=== PATIENT | male | born 1990 | race Caucasian/White ===

== ENCOUNTER 2023-06-03 12:45 | Emergency (ER) | payer MEDICAID ==
[~2023-06-03] VITALS: Ht 162.6 cm; Wt 68.0 kg
[2023-06-03 12:51] VITALS: O2SAT 98
[2023-06-03] MEDS ORDERED: ONDANSETRON HCL 4MG/2ML INJ IV STA (13:13)
[2023-06-03] MEDS ORDERED: SODIUM CHLORIDE 0.9% 1,000 ML IV ONE (13:15)
[2023-06-03] MEDS ORDERED: MECLIZINE 25MG TABLET PO ONE (13:15)
[2023-06-03 13:27] LABS: BASOPHILS % 0.9 % (0.0-2.0); EOSINOPHILS % 1.2 % (0.0-5.0); HEMATOCRIT. 42.3 % (42.0-52.0); HEMOGLOBIN. 14.3 g/dL (14.0-18.0); LYMPHOCYTES % 11.9 % (20.0-50.0); MEAN CORPUSCULAR HEMOGLOBIN 30.2 pg (28.0-32.0); MEAN CORPUSCULAR VOLUME 89.1 fL (80.0-94.0); MEAN PLATELET VOLUME 9.3 fl (7.4-10.4); MONOCYTES % 9.4 % (2.0-8.0); NEUTROPHILS % 76.6 % (40.0-76.0); PLATELET 246 x1000/uL (130-400); RED BLOOD CELL COUNT 4.74 mill/uL (4.7-6.1); RED CELL DISTRIBUTION WIDTH 12.7 % (11.6-14.6)
[2023-06-03 13:33] LABS: CHLORIDE 107 mEq/L (98-107)
[2023-06-03 13:41] LABS: ETHANOL BLOOD < 10 mg/dL (-10)
[2023-06-03] MEDS ORDERED: MECLIZINE 12.5MG TABLET PO NR (13:45)
[2023-06-03] MEDS ORDERED: MECL-159 MT (14:56)
[2023-06-03 15:23] VITALS: BP 128/61; PULSE 86; RESP 18; TEMP 98.3
== END 2023-06-03 15:26 | disposition home or self-care (01) ==
LOC: ER 13:05
DX: R42 Dizziness and giddiness (principal); R51.9 Headache, unspecified
CPT/HCPCS: 80053; 80320; 85025; 36415; 70450; 93005; 96361; 96374; 99285; J8597; J2405; J7030; Z7610 ×4; G0480

== ENCOUNTER 2023-06-15 14:00 | Emergency (ER) | payer MEDICAID ==
[~2023-06-15] VITALS: Ht 162.6 cm; Wt 73.0 kg
[~2023-06-15 14:00] MED LIST: MECL-159 MT
[2023-06-15 14:11] VITALS: O2SAT 97
[2023-06-15 14:41] VITALS: BP 126/74; PULSE 74; RESP 19; TEMP 98
== END 2023-06-15 18:41 | disposition home or self-care (01) ==
LOC: ER 14:39
DX: R42 Dizziness and giddiness (principal)
CPT/HCPCS: 99281

== ENCOUNTER 2023-11-23 08:56 | Emergency (ER) | payer SELFPAY ==
[~2023-11-23] VITALS: Ht 162.6 cm; Wt 73.0 kg
[~2023-11-23 08:56] MED LIST changes: -MECL-159 MT; +MECL-299 MT
[2023-11-23 09:02] VITALS: BP 151/85; PULSE 115; RESP 16; TEMP 98.3; O2SAT 98
[2023-11-23 09:44] LABS: BASOPHILS % 0.7 % (0.0-2.0); EOSINOPHILS % 0.1 % (0.0-5.0); HEMATOCRIT. 45.9 % (42.0-52.0); HEMOGLOBIN. 15.8 g/dL (14.0-18.0); LYMPHOCYTES % 9.6 % (20.0-50.0); MEAN CORPUSCULAR HEMOGLOBIN 30.8 pg (28.0-32.0); MEAN CORPUSCULAR HGB CONC 34.4 g/dL (31.0-37.0); MEAN CORPUSCULAR VOLUME 89.4 fL (80.0-94.0); MEAN PLATELET VOLUME 8.4 fl (7.4-10.4); MONOCYTES % 9.8 % (2.0-8.0); NEUTROPHILS % 79.8 % (40.0-76.0); PLATELET 372 x1000/uL (130-400); RED BLOOD CELL COUNT 5.14 mill/uL (4.7-6.1); RED CELL DISTRIBUTION WIDTH 13.2 % (11.6-14.6); WHITE BLOOD COUNT 8.1 x1000/uL (4.5-11.0)
[2023-11-23 10:29] LABS: CLARITY URINE CLOUDY (CLEAR); COLOR URINE DARK YELLOW (YELLOW); GLUCOSE URINE NEGATIVE (NEGATIVE); KETONES URINE 2+ (NEGATIVE); LEUKOCYTE ESTERASE URINE NEGATIVE (NEGATIVE); NITRITE URINE NEGATIVE (NEGATIVE); OCCULT BLOOD URINE NEGATIVE (NEGATIVE); PH URINE 6.5 (4.5-8.0); PROTEIN URINE 1+ (NEGATIVE); SPECIFIC GRAVITY URINE 1.025 (1.005-1.030)
[2023-11-23 10:48] LABS: SQUAMOUS EPITHELIAL CELL URINE NONE SEEN /lpf (RARE/1+); WBC URINE 0-2 /hpf (0-2)
[2023-11-23 10:49] LABS: BACTERIA URINE RARE; RBC URINE NONE SEEN /hpf (0-2)
[2023-11-23 11:03] LABS: ALANINE AMINOTRANSFERASE 23 IU/L (10-49); ALBUMIN 4.9 g/dL (3.2-4.8); ASPARTATE AMINOTRANSFERASE 41 IU/L (<34); BILIRUBIN TOTAL 0.8 mg/dL (0.1-1.0); CALCIUM 9.9 mg/dL (8.7-10.4); CARBON DIOXIDE 22 mEq/L (21-32); CHLORIDE 100 mEq/L (98-107); CREATININE 0.9 mg/dL (0.6-1.3); GLUCOSE 109 mg/dL (70-105); POTASSIUM 3.5 mEq/L (3.5-5.1); PROTEIN TOTAL 7.9 g/dL (6.0-8.3); SODIUM 135 mEq/L (136-145); UREA NITROGEN BLOOD 10 mg/dL (9-23)
[2023-11-23 11:07] LABS: ETHANOL BLOOD < 10 mg/dL (<10); TROPONIN I HIGH SENSITIVITY < 4 ng/L (3.0-53)
[2023-11-23 16:46] LABS: *AMPHETAMINES SCREEN URINE NEGATIVE (NEGATIVE); *BARBITURATES SCREEN URINE NEGATIVE (NEGATIVE); *BENZODIAZEPINES SCREEN URINE NEGATIVE (NEGATIVE); *COCAINE SCREEN URINE PRESUMPTIVE POSITIVE (NEGATIVE); CANNABINOID URINE SCREEN PRESUMPTIVE POSITIVE (NEGATIVE); ECSTASY MDMA SCREEN URINE NEGATIVE (NEGATIVE); METHADONE URINE SCREEN Neg (NEGATIVE); OPIATES URINE SCREEN NEGATIVE (NEGATIVE); PHENCYCLIDINE URINE SCREEN NEGATIVE (NEGATIVE)
== END 2023-11-23 11:54 | disposition left against medical advice (07) ==
LOC: ER 08:56
DX: K29.70 Gastritis, unspecified, without bleeding (principal); R07.9 Chest pain, unspecified; R10.9 Unspecified abdominal pain
CPT/HCPCS: 36415; 71045; 80053; 80305; 80320; 81003; 84484; 85025; 93005; 99285; G0480

== ENCOUNTER 2023-12-01 03:11 | Emergency (ER) | payer SELFPAY ==
[~2023-12-01] VITALS: Ht 162.6 cm; Wt 65.8 kg
[2023-12-01 03:41] VITALS: O2SAT 99
[2023-12-01 04:39] LABS: BASOPHILS % 1.1 % (0.0-2.0); EOSINOPHILS % 2.2 % (0.0-5.0); HEMATOCRIT. 43.5 % (42.0-52.0); HEMOGLOBIN. 14.5 g/dL (14.0-18.0); LYMPHOCYTES % 24.6 % (20.0-50.0); MEAN CORPUSCULAR HEMOGLOBIN 30.7 pg (28.0-32.0); MEAN CORPUSCULAR HGB CONC 33.3 g/dL (31.0-37.0); MEAN CORPUSCULAR VOLUME 92.3 fL (80.0-94.0); MONOCYTES % 9.4 % (2.0-8.0); NEUTROPHILS % 62.7 % (40.0-76.0); PLATELET 293 x1000/uL (130-400); RED BLOOD CELL COUNT 4.71 mill/uL (4.7-6.1); WHITE BLOOD COUNT 5.9 x1000/uL (4.5-11.0)
[2023-12-01 04:57] LABS: ALANINE AMINOTRANSFERASE 32 IU/L (10-49); ALBUMIN 4.7 g/dL (3.2-4.8); ASPARTATE AMINOTRANSFERASE 40 IU/L (<34); BILIRUBIN TOTAL 0.5 mg/dL (0.1-1.0); CALCIUM 9.6 mg/dL (8.7-10.4); CARBON DIOXIDE 30 mEq/L (21-32); CHLORIDE 104 mEq/L (98-107); CREATININE 0.8 mg/dL (0.6-1.3); GLUCOSE 91 mg/dL (70-105); POTASSIUM 4.2 mEq/L (3.5-5.1); PROTEIN TOTAL 8.1 g/dL (6.0-8.3); SODIUM 139 mEq/L (136-145); UREA NITROGEN BLOOD 13 mg/dL (9-23)
[2023-12-01 05:00] LABS: TROPONIN I HIGH SENSITIVITY < 4 ng/L (3.0-53)
[2023-12-01] MEDS ORDERED: IBUP-2029 MT (05:34)
[2023-12-01 06:17] VITALS: BP 142/95; PULSE 79; RESP 18; TEMP 98.1
== END 2023-12-01 06:20 | disposition home or self-care (01) ==
LOC: ER 03:11
DX: M94.0 Chondrocostal junction syndrome [Tietze] (principal)
CPT/HCPCS: 36415; 71045; 80053; 84484; 85025; 85379; 99284

== ENCOUNTER 2023-12-07 15:26 | Emergency (ER) | payer SELFPAY ==
[~2023-12-07] VITALS: Ht 162.6 cm; Wt 73.0 kg
[~2023-12-07 15:26] MED LIST changes: +IBUP-2029 MT
[2023-12-07 15:39] VITALS: O2SAT 99
[2023-12-07 17:08] VITALS: BP 127/70; PULSE 82; RESP 16; TEMP 97.9
== END 2023-12-07 17:11 | disposition home or self-care (01) ==
LOC: ER 15:26
DX: R07.9 Chest pain, unspecified (principal); K29.70 Gastritis, unspecified, without bleeding; R42 Dizziness and giddiness
CPT/HCPCS: 99281

== ENCOUNTER 2024-01-03 10:58 | Emergency (ER) | payer SELFPAY ==
[~2024-01-03] VITALS: Ht 162.6 cm; Wt 68.0 kg
[2024-01-03 11:07] VITALS: BP 112/74; PULSE 74; RESP 16; TEMP 98.5; O2SAT 97
[2024-01-03] MEDS ORDERED: MAGNESIUM/ALUMINUM HYDROXIDE/SIMETHICONE 30ML UDC PO ONE (11:30)
[2024-01-03 11:39] LABS: BASOPHILS % 0.7 % (0.0-2.0); EOSINOPHILS % 1.8 % (0.0-5.0); HEMATOCRIT. 43.3 % (42.0-52.0); HEMOGLOBIN. 15.1 g/dL (14.0-18.0); LYMPHOCYTES % 18.6 % (20.0-50.0); MEAN CORPUSCULAR HEMOGLOBIN 31.7 pg (28.0-32.0); MEAN CORPUSCULAR HGB CONC 34.7 g/dL (31.0-37.0); MEAN CORPUSCULAR VOLUME 91.2 fL (80.0-94.0); MEAN PLATELET VOLUME 8.6 fl (7.4-10.4); MONOCYTES % 8.9 % (2.0-8.0); PLATELET 317 x1000/uL (130-400); RED BLOOD CELL COUNT 4.75 mill/uL (4.7-6.1); RED CELL DISTRIBUTION WIDTH 13.4 % (11.6-14.6); WHITE BLOOD COUNT 6.3 x1000/uL (4.5-11.0)
[2024-01-03 11:59] LABS: ALANINE AMINOTRANSFERASE 80 IU/L (10-49); ASPARTATE AMINOTRANSFERASE 36 IU/L (<34); BILIRUBIN TOTAL 0.5 mg/dL (0.1-1.0); CALCIUM 9.5 mg/dL (8.7-10.4); CARBON DIOXIDE 29 mEq/L (21-32); CHLORIDE 102 mEq/L (98-107); CREATININE 0.8 mg/dL (0.6-1.3); ETHANOL BLOOD 36 mg/dL (<10); GLUCOSE 85 mg/dL (70-105); PROTEIN TOTAL 8.3 g/dL (6.0-8.3); SODIUM 139 mEq/L (136-145); UREA NITROGEN BLOOD 12 mg/dL (9-23)
[2024-01-03 12:01] LABS: TROPONIN I HIGH SENSITIVITY < 4 ng/L (3.0-53)
[2024-01-03] MEDS ORDERED: FAMO20TA8 MT (13:57)
[2024-01-03 14:03] LABS: TROPONIN I HIGH SENSITIVITY < 4 ng/L (3.0-53)
== END 2024-01-03 15:19 | disposition home or self-care (01) ==
LOC: ER 10:58
DX: R07.89 Other chest pain (principal); F10.10 Alcohol abuse, uncomplicated; F19.90 Other psychoactive substance use, unspecified, uncomplicated
CPT/HCPCS: 36415; 71045; 80053; 80320; 83880; 84484; 85025; 93005; 99285; G0480

== ENCOUNTER 2024-01-17 11:42 | Emergency (ER) | payer MEDICAID ==
[~2024-01-17] VITALS: Ht 162.6 cm; Wt 73.0 kg
[~2024-01-17 11:42] MED LIST changes: +FAMO20TA8 MT
[2024-01-17 11:46] VITALS: BP 119/59; PULSE 79; RESP 14; TEMP 97.9; O2SAT 98
== END 2024-01-17 15:40 | disposition left against medical advice (07) ==
LOC: ER 11:42
DX: M25.519 Pain in unspecified shoulder (principal)
CPT/HCPCS: 99281

== ENCOUNTER 2024-01-24 17:08 | Emergency (ER) | payer MEDICAID ==
[~2024-01-24] VITALS: Ht 162.6 cm; Wt 73.0 kg
[2024-01-24 17:19] VITALS: TEMP 98.3; O2SAT 96
[2024-01-24 17:56] LABS: CLARITY URINE CLEAR (CLEAR); COLOR URINE YELLOW (YELLOW); GLUCOSE URINE NEGATIVE (NEGATIVE); KETONES URINE NEGATIVE (NEGATIVE); LEUKOCYTE ESTERASE URINE NEGATIVE (NEGATIVE); NITRITE URINE NEGATIVE (NEGATIVE); OCCULT BLOOD URINE NEGATIVE (NEGATIVE); PROTEIN URINE NEGATIVE (NEGATIVE); SPECIFIC GRAVITY URINE 1.012 (1.005-1.030); UROBILINOGEN URINE 0.2 E.U./dL (0.2-1.0)
[2024-01-24 17:57] LABS: BASOPHILS % 1.1 % (0.0-2.0); EOSINOPHILS % 1.4 % (0.0-5.0); HEMATOCRIT. 41.5 % (42.0-52.0); HEMOGLOBIN. 14.1 g/dL (14.0-18.0); LYMPHOCYTES % 18.7 % (20.0-50.0); MEAN CORPUSCULAR HEMOGLOBIN 30.5 pg (28.0-32.0); MEAN CORPUSCULAR HGB CONC 33.9 g/dL (31.0-37.0); MEAN CORPUSCULAR VOLUME 90.1 fL (80.0-94.0); MEAN PLATELET VOLUME 8.7 fl (7.4-10.4); MONOCYTES % 7.7 % (2.0-8.0); NEUTROPHILS % 71.1 % (40.0-76.0); PLATELET 316 x1000/uL (130-400); RED BLOOD CELL COUNT 4.61 mill/uL (4.7-6.1); RED CELL DISTRIBUTION WIDTH 12.8 % (11.6-14.6); WHITE BLOOD COUNT 8.6 x1000/uL (4.5-11.0)
[2024-01-24 18:09] LABS: ALANINE AMINOTRANSFERASE 26 IU/L (10-49); ALBUMIN 4.9 g/dL (3.2-4.8); ASPARTATE AMINOTRANSFERASE 24 IU/L (<34); BILIRUBIN TOTAL 0.7 mg/dL (0.1-1.0); CALCIUM 9.7 mg/dL (8.7-10.4); CARBON DIOXIDE 29 mEq/L (21-32); CHLORIDE 101 mEq/L (98-107); CREATININE 0.8 mg/dL (0.6-1.3); GLUCOSE 86 mg/dL (70-105); PROTEIN TOTAL 7.9 g/dL (6.0-8.3); SODIUM 136 mEq/L (136-145); UREA NITROGEN BLOOD 10 mg/dL (9-23)
[2024-01-24 21:01] VITALS: BP 154/95; PULSE 91; RESP 16
[2024-01-24] MEDS: FAMOTIDINE 20MG TABLET PO ONE (21:01)
[2024-01-24] MEDS: KETOROLAC 30MG/ML VIAL IM ONE (21:01)
[2024-01-24] MEDS ORDERED: FAMO20TA8 MT (21:34)
== END 2024-01-24 22:28 | disposition home or self-care (01) ==
LOC: ER 17:24
DX: R10.13 Epigastric pain (principal); R11.0 Nausea; K57.90 Diverticulosis of intestine, part unspecified, without perforation or abscess without bleeding
CPT/HCPCS: 80053; 81003; 83690; 85025; 36415; 71045; 74176; 76705; 96372; 99285; J1885; Z7610

== ENCOUNTER 2024-02-18 13:50 | Emergency (ER) | payer MEDICAID ==
[~2024-02-18] VITALS: Ht 162.6 cm; Wt 73.0 kg
[2024-02-18 14:19] VITALS: BP 124/83; PULSE 99; RESP 18; TEMP 98.1; O2SAT 99
[2024-02-18] MEDS ORDERED: METH-653 MT (15:01)
[2024-02-18] MEDS ORDERED: IBUP-2029 MT (15:01)
== END 2024-02-18 15:11 | disposition home or self-care (01) ==
LOC: ER 13:50
DX: S13.4XXA Sprain of ligaments of cervical spine, initial encounter (principal); S43.402A Unspecified sprain of left shoulder joint, initial encounter; X58.XXXA Exposure to other specified factors, initial encounter; Y93.89 Activity, other specified; Y92.89 Other specified places as the place of occurrence of the external cause; Y99.8 Other external cause status
CPT/HCPCS: 99283

== ENCOUNTER 2024-02-18 21:56 | Emergency (ER) | payer MEDICAID ==
[~2024-02-18] VITALS: Ht 162.6 cm; Wt 73.0 kg
[~2024-02-18 21:56] MED LIST changes: +METH-653 MT
[2024-02-18 22:14] VITALS: BP 124/84; PULSE 80; RESP 18; TEMP 98.2; O2SAT 98
[2024-02-18 22:41] LABS: CLARITY URINE CLEAR (CLEAR); COLOR URINE YELLOW (YELLOW); GLUCOSE URINE NEGATIVE (NEGATIVE); KETONES URINE NEGATIVE (NEGATIVE); LEUKOCYTE ESTERASE URINE NEGATIVE (NEGATIVE); NITRITE URINE NEGATIVE (NEGATIVE); OCCULT BLOOD URINE NEGATIVE (NEGATIVE); PH URINE 6.5 (4.5-8.0); PROTEIN URINE NEGATIVE (NEGATIVE); SPECIFIC GRAVITY URINE 1.006 (1.005-1.030); UROBILINOGEN URINE 0.2 E.U./dL (0.2-1.0)
[2024-02-18 23:28] LABS: EOSINOPHILS % 3.7 % (0.0-5.0); HEMATOCRIT. 40.2 % (42.0-52.0); HEMOGLOBIN. 13.8 g/dL (14.0-18.0); LYMPHOCYTES % 25.4 % (20.0-50.0); MEAN CORPUSCULAR HEMOGLOBIN 31.6 pg (28.0-32.0); MEAN CORPUSCULAR HGB CONC 34.3 g/dL (31.0-37.0); MONOCYTES % 8.4 % (2.0-8.0); NEUTROPHILS % 61.5 % (40.0-76.0); PLATELET 267 x1000/uL (130-400); RED BLOOD CELL COUNT 4.37 mill/uL (4.7-6.1); RED CELL DISTRIBUTION WIDTH 12.3 % (11.6-14.6); WHITE BLOOD COUNT 7.9 x1000/uL (4.5-11.0)
[2024-02-18 23:38] LABS: ALANINE AMINOTRANSFERASE 50 IU/L (10-49); ALBUMIN 4.7 g/dL (3.2-4.8); ASPARTATE AMINOTRANSFERASE 34 IU/L (<34); BILIRUBIN TOTAL 0.6 mg/dL (0.1-1.0); CALCIUM 9.2 mg/dL (8.7-10.4); CARBON DIOXIDE 29 mEq/L (21-32); CHLORIDE 101 mEq/L (98-107); CREATININE 0.9 mg/dL (0.6-1.3); GLUCOSE 91 mg/dL (70-105); POTASSIUM 3.8 mEq/L (3.5-5.1); PROTEIN TOTAL 7.1 g/dL (6.0-8.3); SODIUM 136 mEq/L (136-145); UREA NITROGEN BLOOD 13 mg/dL (9-23)
[2024-02-19 00:05] LABS: TROPONIN I HIGH SENSITIVITY < 4 ng/L (3.0-53)
== END 2024-02-19 03:15 | disposition left against medical advice (07) ==
LOC: ER 22:04
DX: R07.89 Other chest pain (principal); Z53.21 Procedure and treatment not carried out due to patient leaving prior to being seen by health care provider
CPT/HCPCS: 36415; 71045; 80053; 81003; 84484; 85025; 93005; 99281

== ENCOUNTER 2024-02-22 11:14 | Emergency (ER) | payer MEDICAID ==
[~2024-02-22] VITALS: Ht 165.1 cm; Wt 73.0 kg
[2024-02-22 11:17] VITALS: O2SAT 99
[2024-02-22] MEDS: IBUPROFEN 600MG TABLET PO ONE (11:51)
[2024-02-22 12:05] LABS: BASOPHILS % 0.8 % (0.0-2.0); EOSINOPHILS % 1.3 % (0.0-5.0); HEMATOCRIT. 41.1 % (42.0-52.0); LYMPHOCYTES % 12.2 % (20.0-50.0); MEAN CORPUSCULAR HEMOGLOBIN 30.9 pg (28.0-32.0); MEAN CORPUSCULAR HGB CONC 34.1 g/dL (31.0-37.0); MEAN CORPUSCULAR VOLUME 90.6 fL (80.0-94.0); NEUTROPHILS % 78.7 % (40.0-76.0); PLATELET 266 x1000/uL (130-400); RED BLOOD CELL COUNT 4.54 mill/uL (4.7-6.1); RED CELL DISTRIBUTION WIDTH 12.4 % (11.6-14.6); WHITE BLOOD COUNT 6.6 x1000/uL (4.5-11.0)
[2024-02-22 12:24] LABS: ALANINE AMINOTRANSFERASE 33 IU/L (10-49); ALBUMIN 5.1 g/dL (3.2-4.8); ASPARTATE AMINOTRANSFERASE 24 IU/L (<34); BILIRUBIN TOTAL 0.6 mg/dL (0.1-1.0); CALCIUM 9.6 mg/dL (8.7-10.4); CARBON DIOXIDE 27 mEq/L (21-32); CHLORIDE 106 mEq/L (98-107); CREATININE 0.8 mg/dL (0.6-1.3); GLUCOSE 88 mg/dL (70-105); POTASSIUM 4.3 mEq/L (3.5-5.1); PROTEIN TOTAL 8.1 g/dL (6.0-8.3); SODIUM 139 mEq/L (136-145); UREA NITROGEN BLOOD 10 mg/dL (9-23)
[2024-02-22 12:26] LABS: TROPONIN I HIGH SENSITIVITY < 4 ng/L (3.0-53)
[2024-02-22 13:02] VITALS: BP 127/76; PULSE 72; RESP 18; TEMP 98.2
== END 2024-02-22 13:03 | disposition home or self-care (01) ==
LOC: ER 11:14
DX: R07.89 Other chest pain (principal); Z98.890 Other specified postprocedural states
CPT/HCPCS: 36415; 71045; 80053; 84484; 85025; 93005; 99285

== ENCOUNTER 2024-03-14 10:34 | Emergency (ER) | payer MEDICAID ==
[~2024-03-14] VITALS: Ht 162.6 cm; Wt 73.0 kg
[2024-03-14 10:39] VITALS: O2SAT 99
[2024-03-14] MEDS: ACETAMINOPHEN 325MG TABLET PO ONE (11:02)
[2024-03-14] MEDS ORDERED: ACET325T52 MT (13:14)
[2024-03-14 13:20] VITALS: BP 124/70; PULSE 87; RESP 16; TEMP 98.8
== END 2024-03-14 13:22 | disposition home or self-care (01) ==
LOC: ER 10:34
DX: S09.90XA Unspecified injury of head, initial encounter (principal); W01.0XXA Fall on same level from slipping, tripping and stumbling without subsequent striking against object, initial encounter; Y93.89 Activity, other specified; Y92.89 Other specified places as the place of occurrence of the external cause; Y99.8 Other external cause status
CPT/HCPCS: 99284

== ENCOUNTER 2024-03-28 17:10 | Emergency (ER) | payer MEDICAID ==
[~2024-03-28] VITALS: Ht 172.7 cm; Wt 68.0 kg
[~2024-03-28 17:10] MED LIST changes: +ACET325T52 MT
[2024-03-28 17:14] VITALS: O2SAT 98
[2024-03-28 17:30] VITALS: TEMP 98.6
[2024-03-28] MEDS: MAGNESIUM/ALUMINUM HYDROXIDE/SIMETHICONE 30ML UDC PO STA (17:37)
[2024-03-28 17:50] LABS: BASOPHILS % 0.5 % (0.0-2.0); EOSINOPHILS % 1.5 % (0.0-5.0); HEMATOCRIT. 37.3 % (42.0-52.0); HEMOGLOBIN. 12.9 g/dL (14.0-18.0); LYMPHOCYTES % 12.4 % (20.0-50.0); MEAN CORPUSCULAR HEMOGLOBIN 31.1 pg (28.0-32.0); MEAN CORPUSCULAR HGB CONC 34.7 g/dL (31.0-37.0); MEAN CORPUSCULAR VOLUME 89.6 fL (80.0-94.0); MEAN PLATELET VOLUME 7.7 fl (7.4-10.4); NEUTROPHILS % 78.6 % (40.0-76.0); PLATELET 321 x1000/uL (130-400); RED BLOOD CELL COUNT 4.16 mill/uL (4.7-6.1); RED CELL DISTRIBUTION WIDTH 12.4 % (11.6-14.6); WHITE BLOOD COUNT 7.3 x1000/uL (4.5-11.0)
[2024-03-28 17:58] LABS: CARBON DIOXIDE 27 mEq/L (21-32); CHLORIDE 100 mEq/L (98-107); POTASSIUM 3.8 mEq/L (3.5-5.1); SODIUM 135 mEq/L (136-145)
[2024-03-28 17:59] LABS: CALCIUM 9.3 mg/dL (8.7-10.4)
[2024-03-28 18:04] LABS: CREATININE 0.7 mg/dL (0.6-1.3); GLUCOSE 109 mg/dL (70-105); UREA NITROGEN BLOOD 8 mg/dL (9-23)
[2024-03-28 18:05] LABS: ALANINE AMINOTRANSFERASE 27 IU/L (10-49); ASPARTATE AMINOTRANSFERASE 35 IU/L (<34)
[2024-03-28 18:06] LABS: ALBUMIN 4.8 g/dL (3.2-4.8); BILIRUBIN TOTAL 0.8 mg/dL (0.1-1.0); PROTEIN TOTAL 8.1 g/dL (6.0-8.3)
[2024-03-28 19:03] VITALS: BP 148/92; PULSE 93; RESP 16
== END 2024-03-28 19:05 | disposition home or self-care (01) ==
LOC: ER 17:10
DX: R07.89 Other chest pain (principal)
CPT/HCPCS: 36415; 71045; 80053; 83880; 85025; 93005; 99285

== ENCOUNTER 2024-04-03 19:11 | Emergency (ER) | payer MEDICAID ==
[~2024-04-03] VITALS: Ht 162.6 cm; Wt 73.0 kg
[2024-04-03 19:17] VITALS: O2SAT 100
[2024-04-03 19:59] LABS: BASOPHILS % 0.8 % (0.0-2.0); HEMATOCRIT. 39.1 % (42.0-52.0); HEMOGLOBIN. 13.6 g/dL (14.0-18.0); MEAN CORPUSCULAR HGB CONC 34.7 g/dL (31.0-37.0); MEAN CORPUSCULAR VOLUME 89.4 fL (80.0-94.0); MEAN PLATELET VOLUME 7.2 fl (7.4-10.4); MONOCYTES % 4.1 % (2.0-8.0); NEUTROPHILS % 86.1 % (40.0-76.0); PLATELET 337 x1000/uL (130-400); RED BLOOD CELL COUNT 4.38 mill/uL (4.7-6.1); RED CELL DISTRIBUTION WIDTH 12.7 % (11.6-14.6)
[2024-04-03 20:04] LABS: CARBON DIOXIDE 27 mEq/L (21-32); CHLORIDE 97 mEq/L (98-107); POTASSIUM 4.2 mEq/L (3.5-5.1); SODIUM 135 mEq/L (136-145)
[2024-04-03 20:05] LABS: CALCIUM 9.8 mg/dL (8.7-10.4)
[2024-04-03 20:10] LABS: CREATININE 0.7 mg/dL (0.6-1.3); GLUCOSE 90 mg/dL (70-105); UREA NITROGEN BLOOD 12 mg/dL (9-23)
[2024-04-03 20:23] LABS: TROPONIN I HIGH SENSITIVITY < 4 ng/L (3.0-53)
[2024-04-03] MEDS ORDERED: [UNRECOGNIZED DRUG - OTHER] XX NR (23:30)
[2024-04-03] MEDS ORDERED: LIDOCAINE XX NR (23:30)
[2024-04-03] MEDS: SODIUM CHLORIDE 0.9% 1,000 ML IV NR (23:48)
[2024-04-04] MEDS: VISCOUS LIDOCAINE 2% 15 ML UDC PO NR
[2024-04-04] MEDS: MAGNESIUM/ALUMINUM HYDROXIDE/SIMETHICONE 30ML UDC PO NR
[2024-04-04 00:20] VITALS: TEMP 98
[2024-04-04 01:37] LABS: ALANINE AMINOTRANSFERASE 17 IU/L (10-49); ASPARTATE AMINOTRANSFERASE 33 IU/L (<34)
[2024-04-04 01:38] LABS: ALBUMIN 4.2 g/dL (3.2-4.8); BILIRUBIN DIRECT 0.3 mg/dL (<=3.0)
[2024-04-04 01:51] LABS: TROPONIN I HIGH SENSITIVITY < 4 ng/L (3.0-53)
[2024-04-04] MEDS ORDERED: MAG355OR21 MT (02:00)
[2024-04-04 02:23] VITALS: BP 115/71; PULSE 72; RESP 18
== END 2024-04-04 02:15 | disposition home or self-care (01) ==
LOC: ER 19:11
DX: R10.13 Epigastric pain (principal)
CPT/HCPCS: 36415; 71045; 80048; 80076; 84484; 85025; 93005; 96360; 99285

== ENCOUNTER 2024-05-03 17:37 | Emergency (ER) | payer MEDICAID ==
[~2024-05-03] VITALS: Ht 162.6 cm; Wt 68.0 kg
[~2024-05-03 17:37] MED LIST changes: +MAG355OR21 MT
[2024-05-03 18:12] VITALS: TEMP 98.5; O2SAT 98
[2024-05-03 22:59] LABS: TROPONIN I HIGH SENSITIVITY < 4 ng/L (3.0-53)
[2024-05-03 23:10] VITALS: BP 128/76; PULSE 68; RESP 16
== END 2024-05-03 23:24 | disposition home or self-care (01) ==
LOC: ER 17:37
DX: R07.2 Precordial pain (principal)
CPT/HCPCS: 36415; 71045; 84484; 93005; 99285

== ENCOUNTER 2024-05-22 14:49 | Emergency (ER) | payer MEDICAID ==
[~2024-05-22] VITALS: Ht 167.6 cm; Wt 82.0 kg
[2024-05-22 14:51] VITALS: O2SAT 100
[2024-05-22 15:49] LABS: BASOPHILS % 0.5 % (0.0-2.0); EOSINOPHILS % 0.1 % (0.0-5.0); HEMATOCRIT. 46.1 % (42.0-52.0); HEMOGLOBIN. 15.4 g/dL (14.0-18.0); LYMPHOCYTES % 11.1 % (20.0-50.0); MEAN CORPUSCULAR HEMOGLOBIN 30.7 pg (28.0-32.0); MEAN CORPUSCULAR HGB CONC 33.4 g/dL (31.0-37.0); MEAN CORPUSCULAR VOLUME 91.9 fL (80.0-94.0); MEAN PLATELET VOLUME 8.2 fl (7.4-10.4); NEUTROPHILS % 78.3 % (40.0-76.0); PLATELET 390 x1000/uL (130-400); RED BLOOD CELL COUNT 5.02 mill/uL (4.7-6.1); RED CELL DISTRIBUTION WIDTH 14.5 % (11.6-14.6); WHITE BLOOD COUNT 9.7 x1000/uL (4.5-11.0)
[2024-05-22 16:06] LABS: CHLORIDE 97 mEq/L (98-107); POTASSIUM 3.5 mEq/L (3.5-5.1); SODIUM 136 mEq/L (136-145)
[2024-05-22 16:07] LABS: CARBON DIOXIDE 23 mEq/L (21-32)
[2024-05-22 16:12] LABS: CREATININE 0.9 mg/dL (0.6-1.3); GLUCOSE 120 mg/dL (70-105); UREA NITROGEN BLOOD 9 mg/dL (9-23)
[2024-05-22 16:13] LABS: TROPONIN I HIGH SENSITIVITY 10 ng/L (3.0-53)
[2024-05-22 18:29] VITALS: TEMP 98.4
[2024-05-22] MEDS: ACETAMINOPHEN 325MG TABLET PO ONE (18:29)
[2024-05-22] MEDS: ONDANSETRON 4MG ODT PO ONE (18:29)
[2024-05-22 21:01] LABS: TROPONIN I HIGH SENSITIVITY 7 ng/L (3.0-53)
[2024-05-22 22:33] VITALS: BP 125/80; PULSE 87; RESP 16
== END 2024-05-22 22:34 | disposition home or self-care (01) ==
LOC: ER 14:49
DX: R07.89 Other chest pain (principal); R10.9 Unspecified abdominal pain; Z79.899 Other long term (current) drug therapy
CPT/HCPCS: 99285; 93880; 74176; 71045; 80048; 85025; 84484; 36415; 76604; 93005; Q0162

== ENCOUNTER 2024-05-28 10:00 | Emergency (ER) | payer MEDICAID ==
[~2024-05-28] VITALS: Ht 172.7 cm; Wt 60.0 kg
[2024-05-28 10:12] VITALS: O2SAT 100
[2024-05-28 10:35] LABS: CLARITY URINE CLEAR (CLEAR); COLOR URINE YELLOW (YELLOW); GLUCOSE URINE NEGATIVE (NEGATIVE); KETONES URINE NEGATIVE (NEGATIVE); LEUKOCYTE ESTERASE URINE NEGATIVE (NEGATIVE); NITRITE URINE NEGATIVE (NEGATIVE); OCCULT BLOOD URINE NEGATIVE (NEGATIVE); PH URINE 6.5 (4.5-8.0); PROTEIN URINE NEGATIVE (NEGATIVE); UROBILINOGEN URINE 0.2 E.U./dL (0.2-1.0)
[2024-05-28 10:44] LABS: BASOPHILS % 2.5 % (0.0-2.0); EOSINOPHILS % 4.6 % (0.0-5.0); HEMATOCRIT. 42.9 % (42.0-52.0); HEMOGLOBIN. 14.7 g/dL (14.0-18.0); LYMPHOCYTES % 19.8 % (20.0-50.0); MEAN CORPUSCULAR HEMOGLOBIN 31.5 pg (28.0-32.0); MEAN CORPUSCULAR HGB CONC 34.3 g/dL (31.0-37.0); MEAN PLATELET VOLUME 8.5 fl (7.4-10.4); MONOCYTES % 9.2 % (2.0-8.0); NEUTROPHILS % 63.9 % (40.0-76.0); PLATELET 333 x1000/uL (130-400); RED BLOOD CELL COUNT 4.67 mill/uL (4.7-6.1); RED CELL DISTRIBUTION WIDTH 14.3 % (11.6-14.6); WHITE BLOOD COUNT 6.1 x1000/uL (4.5-11.0)
[2024-05-28 10:52] LABS: CARBON DIOXIDE 30 mEq/L (21-32); CHLORIDE 102 mEq/L (98-107); POTASSIUM 4.1 mEq/L (3.5-5.1); SODIUM 137 mEq/L (136-145)
[2024-05-28 10:53] LABS: CALCIUM 9.6 mg/dL (8.7-10.4)
[2024-05-28 10:54] LABS: INR 0.9; PROTHROMBIN TIME 10.3 sec (9.6-11.0)
[2024-05-28 10:58] LABS: CREATININE 0.9 mg/dL (0.6-1.3); GLUCOSE 94 mg/dL (70-105); UREA NITROGEN BLOOD 12 mg/dL (9-23)
[2024-05-28 10:59] LABS: ALBUMIN 4.6 g/dL (3.2-4.8)
[2024-05-28 11:00] LABS: ALANINE AMINOTRANSFERASE 37 IU/L (10-49); ASPARTATE AMINOTRANSFERASE 35 IU/L (<34); BILIRUBIN DIRECT 0.1 mg/dL (<=3.0); BILIRUBIN TOTAL 0.4 mg/dL (0.1-1.0); PROTEIN TOTAL 7.5 g/dL (6.0-8.3)
[2024-05-28 11:01] LABS: TROPONIN I HIGH SENSITIVITY < 4 ng/L (3.0-53)
[2024-05-28] MEDS: ACETAMINOPHEN 325MG TABLET PO NR (13:11)
[2024-05-28 13:45] VITALS: BP 127/71; PULSE 70; RESP 20; TEMP 98.2
== END 2024-05-28 13:46 | disposition home or self-care (01) ==
LOC: ER 10:00
DX: R10.84 Generalized abdominal pain (principal)
CPT/HCPCS: 36415; 71045; 74176; 80048; 80076; 81003; 84484; 85025; 93005; 99285

== ENCOUNTER → 2024-08-24 | Emergency (ER) | payer MEDICAID ==
[~2024-08-24] VITALS: Ht 162.6 cm; Wt 68.0 kg
[~2024-08-24] MED LIST changes: +CELE100C MT; +CYCL10TA21 MT
[2024-08-24 15:16] VITALS: BP 126/72; PULSE 88; RESP 16; TEMP 98; O2SAT 98
[2024-08-24 15:47] VITALS: TEMP 36.66960; O2SAT 98
== END ==
LOC: ER 15:09
DX: M54.9 Dorsalgia, unspecified (principal); Z79.899 Other long term (current) drug therapy
CPT/HCPCS: 99283

== ENCOUNTER 2024-08-29 15:43 | Emergency (ER) | payer MEDICAID ==
[~2024-08-29] VITALS: Ht 172.7 cm; Wt 74.0 kg
[2024-08-29 15:50] VITALS: O2SAT 99
[2024-08-29] MEDS: ACETAMINOPHEN 500MG TABLET PO ONE (17:45)
[2024-08-29] MEDS ORDERED: LIDO700A30 TP (17:48)
[2024-08-29] MEDS ORDERED: ACET-2708 MT (17:48)
[2024-08-29 18:30] VITALS: BP 128/71; PULSE 78; RESP 12; TEMP 36.83628; O2SAT 100
== END 2024-08-29 18:43 | disposition home or self-care (01) ==
LOC: ER 15:43
DX: S29.012A Strain of muscle and tendon of back wall of thorax, initial encounter (principal); X58.XXXA Exposure to other specified factors, initial encounter; Y93.89 Activity, other specified; Y92.89 Other specified places as the place of occurrence of the external cause; Y99.8 Other external cause status
CPT/HCPCS: 73030; 99283

== ENCOUNTER 2024-09-04 03:28 | Emergency (ER) | payer MEDICAID ==
[~2024-09-04] VITALS: Ht 162.6 cm; Wt 65.0 kg
[~2024-09-04 03:28] MED LIST changes: +ACET-2708 MT; +LIDO700A30 TP
[2024-09-04 03:35] VITALS: O2SAT 100
[2024-09-04 04:27] LABS: BASOPHILS % 0.8 % (0.0-2.0); EOSINOPHILS % 2.9 % (0.0-5.0); HEMATOCRIT. 42.5 % (42.0-52.0); HEMOGLOBIN. 14.7 g/dL (14.0-18.0); LYMPHOCYTES % 24.4 % (20.0-50.0); MEAN CORPUSCULAR HEMOGLOBIN 30.8 pg (28.0-32.0); MEAN CORPUSCULAR HGB CONC 34.5 g/dL (31.0-37.0); MEAN CORPUSCULAR VOLUME 89.2 fL (80.0-94.0); MEAN PLATELET VOLUME 7.5 fl (7.4-10.4); MONOCYTES % 9.5 % (2.0-8.0); NEUTROPHILS % 62.4 % (40.0-76.0); PLATELET 364 x1000/uL (130-400); RED BLOOD CELL COUNT 4.76 mill/uL (4.7-6.1); RED CELL DISTRIBUTION WIDTH 13.4 % (11.6-14.6); WHITE BLOOD COUNT 7.2 x1000/uL (4.5-11.0)
[2024-09-04 04:36] LABS: CHLORIDE 100 mEq/L (98-107); POTASSIUM 3.6 mEq/L (3.5-5.1); SODIUM 136 mEq/L (136-145)
[2024-09-04 04:37] LABS: CARBON DIOXIDE 27 mEq/L (21-32)
[2024-09-04 04:38] LABS: CALCIUM 9.4 mg/dL (8.7-10.4)
[2024-09-04 04:42] LABS: CREATININE 0.7 mg/dL (0.6-1.3); GLUCOSE 99 mg/dL (70-105); UREA NITROGEN BLOOD 10 mg/dL (9-23)
[2024-09-04 04:54] LABS: TROPONIN I HIGH SENSITIVITY < 4 ng/L (3.0-53)
[2024-09-04 05:05] LABS: CLARITY URINE CLEAR (CLEAR); COLOR URINE ORANGE (YELLOW); GLUCOSE URINE NEGATIVE (NEGATIVE); KETONES URINE NEGATIVE (NEGATIVE); LEUKOCYTE ESTERASE URINE NEGATIVE (NEGATIVE); NITRITE URINE NEGATIVE (NEGATIVE); OCCULT BLOOD URINE NEGATIVE (NEGATIVE); PROTEIN URINE TRACE (NEGATIVE); SPECIFIC GRAVITY URINE 1.021 (1.005-1.030); UROBILINOGEN URINE 0.2 E.U./dL (0.2-1.0)
[2024-09-04] MEDS ORDERED: NAPR-1176 MT (05:34)
[2024-09-04] MEDS ORDERED: LIDO700A15 TP (05:34)
[2024-09-04 05:57] VITALS: BP 139/83; PULSE 78; RESP 18; TEMP 37.00296; O2SAT 100
[2024-09-04] MEDS: KETOROLAC 15MG/ML VIAL IM ONE (05:57)
[2024-09-04 07:17] LABS: BACTERIA URINE NONE SEEN; RBC URINE 0-2 /hpf (0-2); SQUAMOUS EPITHELIAL CELL URINE FEW /lpf (RARE/1+); WBC URINE 0-2 /hpf (0-2)
== END 2024-09-04 05:59 | disposition home or self-care (01) ==
LOC: ER 03:28
DX: R07.89 Other chest pain (principal); Z79.899 Other long term (current) drug therapy
CPT/HCPCS: 99285; 71045; 80048; 81003; 85025; 84484; 36415; 93005; 96372; J1885

== ENCOUNTER 2024-11-24 20:54 | Emergency (ER) | payer MEDICAID ==
[~2024-11-24] VITALS: Ht 162.6 cm; Wt 70.3 kg
[~2024-11-24 20:54] MED LIST changes: +ACET-3800 MT; -ACET325T52 MT; +LIDO700A15 TP; +NAPR-1176 MT
[2024-11-24 21:06] VITALS: O2SAT 98
[2024-11-24 22:16] LABS: BASOPHILS % 1.3 % (0.0-2.0); EOSINOPHILS % 5.3 % (0.0-5.0); HEMATOCRIT. 43.8 % (42.0-52.0); HEMOGLOBIN. 14.8 g/dL (14.0-18.0); LYMPHOCYTES % 24.9 % (20.0-50.0); MEAN CORPUSCULAR HGB CONC 33.8 g/dL (31.0-37.0); MEAN CORPUSCULAR VOLUME 91.6 fL (80.0-94.0); MEAN PLATELET VOLUME 8.9 fl (7.4-10.4); MONOCYTES % 9.6 % (2.0-8.0); NEUTROPHILS % 58.9 % (40.0-76.0); PLATELET 308 x1000/uL (130-400); RED BLOOD CELL COUNT 4.78 mill/uL (4.7-6.1); RED CELL DISTRIBUTION WIDTH 13.4 % (11.6-14.6); WHITE BLOOD COUNT 7.1 x1000/uL (4.5-11.0)
[2024-11-24 22:19] LABS: CHLORIDE 104 mEq/L (98-107); POTASSIUM 3.9 mEq/L (3.5-5.1); SODIUM 139 mEq/L (136-145)
[2024-11-24 22:20] LABS: CALCIUM 9.9 mg/dL (8.7-10.4); CARBON DIOXIDE 29 mEq/L (21-32)
[2024-11-24 22:22] LABS: INR 0.9; PROTHROMBIN TIME 9.8 sec (9.6-11.0)
[2024-11-24 22:25] LABS: CREATININE 0.9 mg/dL (0.6-1.3); GLUCOSE 114 mg/dL (70-105); UREA NITROGEN BLOOD 15 mg/dL (9-23)
[2024-11-24 22:31] LABS: TROPONIN I HIGH SENSITIVITY < 4 ng/L (3.0-53)
[2024-11-25] MEDS ORDERED: FAMO-135 MT (01:16)
[2024-11-25 02:31] VITALS: BP 129/78; PULSE 80; RESP 17; TEMP 37.05852; O2SAT 98
== END 2024-11-25 02:32 | disposition home or self-care (01) ==
LOC: ER 20:54
DX: K29.70 Gastritis, unspecified, without bleeding (principal); Z79.1 Long term (current) use of non-steroidal anti-inflammatories (NSAID)
CPT/HCPCS: 36415; 71045; 80048; 84484; 85025; 93005; 99285

== ENCOUNTER 2025-01-03 07:41 | Inpatient (IN) | payer OTHER, MEDICAID ==
[~2025-01-03] VITALS: Ht 162.6 cm; Wt 70.3 kg
[~2025-01-03 07:41] MED LIST changes: +FAMO-135 MT
[2025-01-03 07:46] VITALS: O2SAT 100
[2025-01-03 08:26] LABS: BASOPHILS % 0.8 % (0.0-2.0); EOSINOPHILS % 0.5 % (0.0-5.0); HEMATOCRIT. 45.3 % (42.0-52.0); HEMOGLOBIN. 15.8 g/dL (14.0-18.0); LYMPHOCYTES % 21.6 % (20.0-50.0); MEAN CORPUSCULAR HEMOGLOBIN 31.4 pg (28.0-32.0); MEAN CORPUSCULAR HGB CONC 34.8 g/dL (31.0-37.0); MEAN PLATELET VOLUME 7.6 fl (7.4-10.4); MONOCYTES % 7.5 % (2.0-8.0); NEUTROPHILS % 69.6 % (40.0-76.0); PLATELET 364 x1000/uL (130-400); RED BLOOD CELL COUNT 5.04 mill/uL (4.7-6.1); RED CELL DISTRIBUTION WIDTH 13.3 % (11.6-14.6); WHITE BLOOD COUNT 8.2 x1000/uL (4.5-11.0)
[2025-01-03 08:37] LABS: CHLORIDE 99 mEq/L (98-107); POTASSIUM 3.6 mEq/L (3.5-5.1); SODIUM 135 mEq/L (136-145)
[2025-01-03 08:38] LABS: CARBON DIOXIDE 23 mEq/L (21-32)
[2025-01-03 08:39] LABS: CALCIUM 9.8 mg/dL (8.7-10.4)
[2025-01-03 08:43] LABS: CREATININE 0.9 mg/dL (0.6-1.3); GLUCOSE 107 mg/dL (70-105); UREA NITROGEN BLOOD 10 mg/dL (9-23)
[2025-01-03 08:45] LABS: TROPONIN I HIGH SENSITIVITY < 4 ng/L (3.0-53)
[2025-01-03] MEDS: PANTOPRAZOLE SODIUM 40 MG/VIAL IV NR (08:49)
[2025-01-03] MEDS: SODIUM CHLORIDE 0.9% 1,000 ML IV ONE (08:49)
[2025-01-03 09:14] LABS: ETHANOL BLOOD 87 mg/dL (<10)
[2025-01-03 09:15] LABS: ALANINE AMINOTRANSFERASE 24 IU/L (10-49); ALBUMIN 4.5 g/dL (3.2-4.8); ASPARTATE AMINOTRANSFERASE 39 IU/L (<34); BILIRUBIN DIRECT 0.2 mg/dL (<=3.0); BILIRUBIN TOTAL 0.6 mg/dL (0.1-1.0); PROTEIN TOTAL 8.1 g/dL (6.0-8.3)
[2025-01-03 09:19] LABS: LACTIC ACID 4.7 mmol/L (0.4-2.0)
[2025-01-03] MEDS: [UNRECOGNIZED DRUG - REMARK] IV ONE (10:15)
[2025-01-03] MEDS: LORAZEPAM 2MG/ML INJ IV ONE (10:21)
[2025-01-03 10:23] LABS: CLARITY URINE CLEAR (CLEAR); COLOR URINE YELLOW (YELLOW); GLUCOSE URINE NEGATIVE (NEGATIVE); KETONES URINE 2+ (NEGATIVE); LEUKOCYTE ESTERASE URINE NEGATIVE (NEGATIVE); NITRITE URINE NEGATIVE (NEGATIVE); OCCULT BLOOD URINE NEGATIVE (NEGATIVE); PROTEIN URINE TRACE (NEGATIVE); SPECIFIC GRAVITY URINE 1.023 (1.005-1.030); UROBILINOGEN URINE 0.2 E.U./dL (0.2-1.0)
[2025-01-03 10:40] LABS: *AMPHETAMINES SCREEN URINE PRESUMPTIVE POSITIVE (NEGATIVE); *BARBITURATES SCREEN URINE NEGATIVE (NEGATIVE); *BENZODIAZEPINES SCREEN URINE NEGATIVE (NEGATIVE); *COCAINE SCREEN URINE NEGATIVE (NEGATIVE); METHADONE URINE SCREEN NEGATIVE (NEGATIVE); OPIATES URINE SCREEN NEGATIVE (NEGATIVE)
[2025-01-03 10:41] LABS: CANNABINOID URINE SCREEN NEGATIVE (NEGATIVE); ECSTASY MDMA SCREEN URINE CONF.TEST INDICATED (NEGATIVE); PHENCYCLIDINE URINE SCREEN NEGATIVE (NEGATIVE)
[2025-01-03 10:46] LABS: RBC URINE 0-2 /hpf (0-2); SQUAMOUS EPITHELIAL CELL URINE NONE SEEN /lpf (RARE/1+); WBC URINE 0-2 /hpf (0-2)
[2025-01-03 10:47] LABS: BACTERIA URINE NONE SEEN; YEAST URINE NONE SEEN
[2025-01-03] MEDS ORDERED: LORAZEPAM 0.5MG TABLET PO PRN (11:45)
[2025-01-03] MEDS ORDERED: ACETAMINOPHEN 325MG TABLET PO PRN ×2 (11:45)
[2025-01-03] MEDS ORDERED: ONDANSETRON HCL 4MG/2ML INJ IV PRN (11:45)
[2025-01-03] MEDS ORDERED: CLONIDINE 0.1MG TABLET PO PRN (11:45)
[2025-01-03] MEDS ORDERED: GUAIFENESIN 200MG/10ML SUGAR FREE UDC PO PRN (11:45)
[2025-01-03] MEDS ORDERED: IPRATROPIUM/ALBUTEROL 0.5-3(2.5)MG/3ML NEB HHN PRN (11:45)
[2025-01-03] MEDS ORDERED: DOCUSATE SODIUM 100MG CAPSULE PO PRN (11:45)
[2025-01-03 12:00] VITALS: BP 128/65; PULSE 98; RESP 18; TEMP 36.7; O2SAT 99
[2025-01-03 12:46] VITALS: BP 121/63; PULSE 98; RESP 15; TEMP 36.1
[2025-01-03] MEDS: SODIUM CHLORIDE 0.9% 1,000 ML IV SCH (13:30)
[2025-01-03 16:00] VITALS: BP 130/87; PULSE 107; RESP 18; TEMP 37.1; O2SAT 100
[2025-01-03 18:17] LABS: HEMATOCRIT 40.1 % (42.0-52.0); HEMOGLOBIN 13.5 g/dL (14.0-18.0); MEAN CORPUSCULAR HEMOGLOBIN 30.8 pg (28.0-32.0); MEAN CORPUSCULAR HGB CONC 33.8 g/dL (31.0-37.0); PLATELET 287 x1000/uL (130-400); RED CELL DISTRIBUTION WIDTH 13.8 % (11.6-14.6); WHITE BLOOD COUNT 8.4 x1000/uL (4.5-11.0)
[2025-01-03 20:00] VITALS: BP 135/75; RESP 18; TEMP 36.3; O2SAT 98
[2025-01-04] VITALS: BP 127/87; PULSE 82; RESP 20; TEMP 36.5; O2SAT 82
[2025-01-04] MEDS: MAGNESIUM/ALUMINUM HYDROXIDE/SIMETHICONE 30ML UDC PO PRN (03:03)
[2025-01-04 04:00] VITALS: BP 136/75; PULSE 54; RESP 20; TEMP 36.1; O2SAT 99
[2025-01-04] MEDS: PANTOPRAZOLE 40MG DR TABLET PO SCH (08:14)
[2025-01-04 10:21] LABS: CHLORIDE 105 mEq/L (98-107); POTASSIUM 3.7 mEq/L (3.5-5.1); SODIUM 137 mEq/L (136-145)
[2025-01-04 10:22] LABS: CALCIUM 9.3 mg/dL (8.7-10.4); CARBON DIOXIDE 22 mEq/L (21-32)
[2025-01-04 10:27] LABS: CREATININE 0.6 mg/dL (0.6-1.3); GLUCOSE 89 mg/dL (70-105); UREA NITROGEN BLOOD 8 mg/dL (9-23)
[2025-01-04] MEDS ORDERED: LORAZEPAM 2MG/ML INJ IV PRN (10:45)
== END 2025-01-04 12:53 | disposition left against medical advice (07) | DRG 313 ==
LOC: ER 07:52 → 5WST 10:54 → EDBEDREQ 10:58 → EDBEDREQTM 10:58
PROVIDERS: ADMIT Internal Medicine; ATTEND Internal Medicine
DX: R07.89 Other chest pain (principal); E87.20 Acidosis, unspecified; F14.90 Cocaine use, unspecified, uncomplicated; F17.210 Nicotine dependence, cigarettes, uncomplicated; F41.9 Anxiety disorder, unspecified; I25.10 Atherosclerotic heart disease of native coronary artery without angina pectoris; Z53.29 Procedure and treatment not carried out because of patient's decision for other reasons; K21.9 Gastro-esophageal reflux disease without esophagitis; F19.10 Other psychoactive substance abuse, uncomplicated
CPT/HCPCS: 36415; 71045; 80048; 80076; 80305; 80320; 81003; 83605; 84484; 85025; 85027; 85379; 93005; J2060; J2470; J3411; J3490; J7070; G0480

== ENCOUNTER 2025-01-14 08:56 | Emergency (ER) | payer OTHER, MEDICAID ==
[~2025-01-14] VITALS: Ht 162.6 cm; Wt 70.3 kg
[2025-01-14 09:08] VITALS: O2SAT 99
[2025-01-14] MEDS: ONDANSETRON 4MG ODT PO STA (10:08)
[2025-01-14] MEDS: MAGNESIUM/ALUMINUM HYDROXIDE/SIMETHICONE 30ML UDC PO STA (10:08)
[2025-01-14 10:09] LABS: CHLORIDE 100 mEq/L (98-107); POTASSIUM 4.2 mEq/L (3.5-5.1); SODIUM 138 mEq/L (136-145)
[2025-01-14 10:10] LABS: BASOPHILS % 0.8 % (0.0-2.0); CARBON DIOXIDE 27 mEq/L (21-32); EOSINOPHILS % 0.9 % (0.0-5.0); HEMATOCRIT. 47.1 % (42.0-52.0); HEMOGLOBIN. 15.7 g/dL (14.0-18.0); LYMPHOCYTES % 14.3 % (20.0-50.0); MEAN CORPUSCULAR HGB CONC 33.3 g/dL (31.0-37.0); MEAN CORPUSCULAR VOLUME 90.1 fL (80.0-94.0); MEAN PLATELET VOLUME 8.4 fl (7.4-10.4); MONOCYTES % 13.1 % (2.0-8.0); NEUTROPHILS % 70.9 % (40.0-76.0); PLATELET 353 x1000/uL (130-400); RED BLOOD CELL COUNT 5.22 mill/uL (4.7-6.1); RED CELL DISTRIBUTION WIDTH 13.8 % (11.6-14.6); WHITE BLOOD COUNT 9.5 x1000/uL (4.5-11.0)
[2025-01-14 10:11] LABS: CALCIUM 10.9 mg/dL (8.7-10.4)
[2025-01-14 10:15] LABS: CREATININE 0.9 mg/dL (0.6-1.3)
[2025-01-14 10:16] LABS: GLUCOSE 108 mg/dL (70-105); UREA NITROGEN BLOOD 13 mg/dL (9-23)
[2025-01-14 10:17] LABS: ALANINE AMINOTRANSFERASE 59 IU/L (10-49); ALBUMIN 5.2 g/dL (3.2-4.8); ASPARTATE AMINOTRANSFERASE 34 IU/L (<34); TROPONIN I HIGH SENSITIVITY 16 ng/L (3.0-53)
[2025-01-14 10:18] LABS: BILIRUBIN DIRECT 0.2 mg/dL (<=3.0); BILIRUBIN TOTAL 0.7 mg/dL (0.1-1.0); PROTEIN TOTAL 8.2 g/dL (6.0-8.3)
[2025-01-14 11:00] LABS: CLARITY URINE CLEAR (CLEAR); COLOR URINE DARK YELLOW (YELLOW); GLUCOSE URINE NEGATIVE (NEGATIVE); KETONES URINE 1+ (NEGATIVE); LEUKOCYTE ESTERASE URINE TRACE (NEGATIVE); NITRITE URINE NEGATIVE (NEGATIVE); OCCULT BLOOD URINE NEGATIVE (NEGATIVE); PH URINE 5.5 (4.5-8.0); PROTEIN URINE 1+ (NEGATIVE); SPECIFIC GRAVITY URINE 1.034 (1.005-1.030)
[2025-01-14 11:11] LABS: MUCUS URINE 1+ /lpf (NONE/TRACE)
[2025-01-14] MEDS: LORAZEPAM 1MG TABLET PO ONE (11:12)
[2025-01-14 11:14] LABS: BACTERIA URINE 1+; SQUAMOUS EPITHELIAL CELL URINE RARE /lpf (RARE/1+)
[2025-01-14 11:15] LABS: WBC URINE 0-2 /hpf (0-2)
[2025-01-14 11:16] LABS: RBC URINE NONE SEEN /hpf (0-2)
[2025-01-14 12:28] LABS: TROPONIN I HIGH SENSITIVITY 9 ng/L (3.0-53)
[2025-01-14] MEDS ORDERED: MAG355OR21 MT (12:54)
[2025-01-14 13:02] VITALS: BP 127/88; PULSE 110; RESP 20; TEMP 36.6; O2SAT 99
== END 2025-01-14 13:03 | disposition home or self-care (01) ==
LOC: ER 08:56
DX: R07.9 Chest pain, unspecified (principal); K21.9 Gastro-esophageal reflux disease without esophagitis; F10.90 Alcohol use, unspecified, uncomplicated; F12.90 Cannabis use, unspecified, uncomplicated; Z79.1 Long term (current) use of non-steroidal anti-inflammatories (NSAID); Y90.9 Presence of alcohol in blood, level not specified
CPT/HCPCS: 99285; 71045; 80076; 80048; 81003; 83690; 85025; 84484; 36415; 93005; Q0162

== ENCOUNTER 2025-01-21 17:04 | Emergency (ER) | payer OTHER, MEDICAID ==
[~2025-01-21] VITALS: Ht 162.6 cm; Wt 70.3 kg
[2025-01-21 17:07] VITALS: BP 120/78; RESP 16; TEMP 36.8; O2SAT 99
[2025-01-21 17:10] VITALS: PULSE 122; O2SAT 99
== END 2025-01-21 21:53 | disposition left against medical advice (07) ==
LOC: ER 17:04
DX: R07.89 Other chest pain (principal); Z53.21 Procedure and treatment not carried out due to patient leaving prior to being seen by health care provider
CPT/HCPCS: 71045

== ENCOUNTER 2025-02-26 15:37 | Emergency (ER) | payer OTHER, MEDICAID ==
[~2025-02-26] VITALS: Ht 167.6 cm; Wt 70.0 kg
[2025-02-26 15:47] VITALS: TEMP 36.8; O2SAT 100
[2025-02-26 17:15] LABS: CLARITY URINE CLEAR (CLEAR); COLOR URINE YELLOW (YELLOW); GLUCOSE URINE NEGATIVE (NEGATIVE); KETONES URINE 1+ (NEGATIVE); LEUKOCYTE ESTERASE URINE NEGATIVE (NEGATIVE); NITRITE URINE NEGATIVE (NEGATIVE); OCCULT BLOOD URINE NEGATIVE (NEGATIVE); PH URINE >=9.0 (4.5-8.0); PROTEIN URINE 2+ (NEGATIVE); SPECIFIC GRAVITY URINE 1.026 (1.005-1.030)
[2025-02-26 17:25] VITALS: O2SAT 99
[2025-02-26 17:26] LABS: BASOPHILS % 0.5 % (0.0-2.0); EOSINOPHILS % 0.8 % (0.0-5.0); HEMATOCRIT. 43.4 % (42.0-52.0); HEMOGLOBIN. 14.7 g/dL (14.0-18.0); LYMPHOCYTES % 10.6 % (20.0-50.0); MEAN CORPUSCULAR HEMOGLOBIN 30.5 pg (28.0-32.0); MEAN CORPUSCULAR HGB CONC 33.9 g/dL (31.0-37.0); MEAN PLATELET VOLUME 7.8 fl (7.4-10.4); MONOCYTES % 6.8 % (2.0-8.0); NEUTROPHILS % 81.3 % (40.0-76.0); PLATELET 381 x1000/uL (130-400); RED BLOOD CELL COUNT 4.83 mill/uL (4.7-6.1); RED CELL DISTRIBUTION WIDTH 13.4 % (11.6-14.6); WHITE BLOOD COUNT 10.1 x1000/uL (4.5-11.0)
[2025-02-26 17:29] LABS: CHLORIDE 99 mEq/L (98-107); POTASSIUM 3.3 mEq/L (3.5-5.1); SODIUM 136 mEq/L (136-145)
[2025-02-26 17:30] LABS: CALCIUM 10.2 mg/dL (8.7-10.4); CARBON DIOXIDE 26 mEq/L (21-32)
[2025-02-26 17:35] LABS: CREATININE 0.6 mg/dL (0.6-1.3); GLUCOSE 105 mg/dL (70-105); UREA NITROGEN BLOOD 7 mg/dL (9-23)
[2025-02-26 17:36] LABS: BACTERIA URINE NONE SEEN; RBC URINE NONE SEEN /hpf (0-2); SQUAMOUS EPITHELIAL CELL URINE RARE /lpf (RARE/1+); WBC URINE NONE SEEN /hpf (0-2)
[2025-02-26 17:37] LABS: ALANINE AMINOTRANSFERASE 45 IU/L (10-49); ALBUMIN 4.7 g/dL (3.2-4.8); ASPARTATE AMINOTRANSFERASE 42 IU/L (<34); BILIRUBIN DIRECT 0.3 mg/dL (<=3.0); BILIRUBIN TOTAL 0.9 mg/dL (0.1-1.0)
[2025-02-26 17:38] LABS: PROTEIN TOTAL 8.2 g/dL (6.0-8.3)
[2025-02-26 18:14] LABS: TROPONIN I HIGH SENSITIVITY < 4 ng/L (3.0-53)
[2025-02-26] MEDS ORDERED: SUCR1TAB MT (18:55)
[2025-02-26 18:59] VITALS: BP 151/80; PULSE 100; RESP 18
[2025-02-26] MEDS: KETOROLAC 30MG/ML VIAL IM ONE (18:59)
[2025-02-26] MEDS: MAGNESIUM/ALUMINUM HYDROXIDE/SIMETHICONE 30ML UDC PO ONE (19:00)
[2025-02-26] MEDS: ONDANSETRON 4MG ODT PO ONE (19:01)
== END 2025-02-26 19:12 | disposition home or self-care (01) ==
LOC: ER 15:37
DX: R11.2 Nausea with vomiting, unspecified (principal); F15.90 Other stimulant use, unspecified, uncomplicated; Z79.1 Long term (current) use of non-steroidal anti-inflammatories (NSAID); Z79.899 Other long term (current) drug therapy
CPT/HCPCS: 80076; 80048; 81003; 83690; 85025; 84484; 36415; 93005; 96372; 99284; Q0162; J1885; Z7610

== ENCOUNTER 2025-03-21 12:22 | Emergency (ER) | payer OTHER, MEDICAID ==
[~2025-03-21] VITALS: Ht 167.6 cm; Wt 67.0 kg
[~2025-03-21 12:22] MED LIST changes: +SUCR1TAB MT
[2025-03-21 12:28] VITALS: O2SAT 97
[2025-03-21 12:30] VITALS: BP 124/88; PULSE 115; RESP 18; TEMP 37.1; O2SAT 99
[2025-03-21 12:54] LABS: EOSINOPHILS % 1.4 % (0.0-5.0); HEMOGLOBIN. 15.3 g/dL (14.0-18.0); LYMPHOCYTES % 14.6 % (20.0-50.0); MEAN CORPUSCULAR HGB CONC 33.9 g/dL (31.0-37.0); MEAN CORPUSCULAR VOLUME 88.5 fL (80.0-94.0); MONOCYTES % 6.6 % (2.0-8.0); NEUTROPHILS % 76.4 % (40.0-76.0); PLATELET 375 x1000/uL (130-400); RED BLOOD CELL COUNT 5.08 mill/uL (4.7-6.1); RED CELL DISTRIBUTION WIDTH 13.4 % (11.6-14.6); WHITE BLOOD COUNT 7.2 x1000/uL (4.5-11.0)
[2025-03-21 13:04] LABS: CHLORIDE 96 mEq/L (98-107); POTASSIUM 3.6 mEq/L (3.5-5.1); SODIUM 136 mEq/L (136-145)
[2025-03-21 13:05] LABS: CARBON DIOXIDE 29 mEq/L (21-32); PROTHROMBIN TIME 10.4 sec (9.6-11.0)
[2025-03-21 13:06] LABS: CALCIUM 9.9 mg/dL (8.7-10.4)
[2025-03-21 13:10] LABS: CREATININE 0.7 mg/dL (0.6-1.3); GLUCOSE 94 mg/dL (70-105)
[2025-03-21 13:11] LABS: UREA NITROGEN BLOOD 7 mg/dL (9-23)
[2025-03-21] MEDS: ONDANSETRON 4MG ODT PO ONE (13:41)
[2025-03-21 14:27] LABS: TROPONIN I HIGH SENSITIVITY < 4 ng/L (3.0-53)
[2025-03-21 14:39] LABS: CLARITY URINE CLOUDY (CLEAR); COLOR URINE YELLOW (YELLOW); GLUCOSE URINE NEGATIVE (NEGATIVE); KETONES URINE 3+ (NEGATIVE); LEUKOCYTE ESTERASE URINE NEGATIVE (NEGATIVE); NITRITE URINE NEGATIVE (NEGATIVE); OCCULT BLOOD URINE NEGATIVE (NEGATIVE); PH URINE >=9.0 (4.5-8.0); PROTEIN URINE 2+ (NEGATIVE)
[2025-03-21 15:31] LABS: MUCUS URINE 3+ /lpf (NONE/TRACE); SQUAMOUS EPITHELIAL CELL URINE FEW /lpf (RARE/1+)
[2025-03-21 15:32] LABS: RBC URINE NONE SEEN /hpf (0-2); WBC URINE 0-2 /hpf (0-2)
[2025-03-21 15:33] LABS: BACTERIA URINE TRACE
[2025-03-21] MEDS: FAMOTIDINE 20MG TABLET PO ONE (15:43)
[2025-03-21] MEDS: MAGNESIUM/ALUMINUM HYDROXIDE/SIMETHICONE 30ML UDC PO ONE (15:43)
[2025-03-21] MEDS ORDERED: ONDA-239 PO (15:47)
[2025-03-22] MEDS ORDERED: MAG-55 MT (01:59)
== END 2025-03-21 15:49 | disposition home or self-care (01) ==
LOC: ER 12:22
DX: K29.70 Gastritis, unspecified, without bleeding (principal); F15.90 Other stimulant use, unspecified, uncomplicated; Z79.1 Long term (current) use of non-steroidal anti-inflammatories (NSAID); Z79.899 Other long term (current) drug therapy
CPT/HCPCS: 99285; 71045; 80048; 81003; 83690; 85025; 85610; 84484; 36415; 93005; Q0162

== ENCOUNTER 2025-03-21 20:38 | Emergency (ER) | payer OTHER, MEDICAID ==
[~2025-03-21] VITALS: Ht 162.6 cm; Wt 80.0 kg
[~2025-03-21 20:38] MED LIST changes: +ONDA-239 PO
[2025-03-21 22:00] LABS: CLARITY URINE CLEAR (CLEAR); COLOR URINE YELLOW (YELLOW); GLUCOSE URINE NEGATIVE (NEGATIVE); KETONES URINE TRACE (NEGATIVE); LEUKOCYTE ESTERASE URINE NEGATIVE (NEGATIVE); NITRITE URINE NEGATIVE (NEGATIVE); OCCULT BLOOD URINE NEGATIVE (NEGATIVE); PROTEIN URINE NEGATIVE (NEGATIVE); SPECIFIC GRAVITY URINE 1.003 (1.005-1.030); UROBILINOGEN URINE 0.2 E.U./dL (0.2-1.0)
[2025-03-21 22:12] LABS: *AMPHETAMINES SCREEN URINE NEGATIVE (NEGATIVE); *BARBITURATES SCREEN URINE NEGATIVE (NEGATIVE); *BENZODIAZEPINES SCREEN URINE NEGATIVE (NEGATIVE); *COCAINE SCREEN URINE NEGATIVE (NEGATIVE)
[2025-03-21 22:13] LABS: CANNABINOID URINE SCREEN NEGATIVE (NEGATIVE); ECSTASY MDMA SCREEN URINE NEGATIVE (NEGATIVE); METHADONE URINE SCREEN NEGATIVE (NEGATIVE); OPIATES URINE SCREEN NEGATIVE (NEGATIVE); PHENCYCLIDINE URINE SCREEN NEGATIVE (NEGATIVE)
[2025-03-21] MEDS: PANTOPRAZOLE 40MG DR TABLET PO ONE (23:17)
[2025-03-21] MEDS: ONDANSETRON 4MG ODT PO ONE (23:18)
[2025-03-21] MEDS: MAGNESIUM/ALUMINUM HYDROXIDE/SIMETHICONE 30ML UDC PO ONE (23:18)
[2025-03-21 23:30] LABS: BASOPHILS % 0.6 % (0.0-2.0); EOSINOPHILS % 1.8 % (0.0-5.0); HEMATOCRIT. 43.7 % (42.0-52.0); HEMOGLOBIN. 14.9 g/dL (14.0-18.0); LYMPHOCYTES % 14.8 % (20.0-50.0); MEAN CORPUSCULAR HEMOGLOBIN 29.9 pg (28.0-32.0); MEAN CORPUSCULAR HGB CONC 34.1 g/dL (31.0-37.0); MEAN CORPUSCULAR VOLUME 87.8 fL (80.0-94.0); MEAN PLATELET VOLUME 8.2 fl (7.4-10.4); MONOCYTES % 9.8 % (2.0-8.0); PLATELET 357 x1000/uL (130-400); RED BLOOD CELL COUNT 4.98 mill/uL (4.7-6.1); RED CELL DISTRIBUTION WIDTH 13.8 % (11.6-14.6); WHITE BLOOD COUNT 8.8 x1000/uL (4.5-11.0)
[2025-03-21 23:38] LABS: CHLORIDE 97 mEq/L (98-107); POTASSIUM 3.6 mEq/L (3.5-5.1); SODIUM 136 mEq/L (136-145)
[2025-03-21 23:39] LABS: CALCIUM 10.2 mg/dL (8.7-10.4); CARBON DIOXIDE 31 mEq/L (21-32)
[2025-03-21 23:40] LABS: PROTHROMBIN TIME 10.3 sec (9.6-11.0)
[2025-03-21 23:44] LABS: CREATININE 0.8 mg/dL (0.6-1.3); ETHANOL BLOOD < 10 mg/dL (<10); GLUCOSE 103 mg/dL (70-105); UREA NITROGEN BLOOD 7 mg/dL (9-23)
[2025-03-21 23:46] LABS: ALANINE AMINOTRANSFERASE 90 IU/L (10-49); ALBUMIN 4.7 g/dL (3.2-4.8); ASPARTATE AMINOTRANSFERASE 114 IU/L (<34); BILIRUBIN DIRECT 0.5 mg/dL (<=3.0); BILIRUBIN TOTAL 1.6 mg/dL (0.1-1.0)
[2025-03-22 00:05] LABS: TROPONIN I HIGH SENSITIVITY < 4 ng/L (3.0-53)
[2025-03-22] MEDS ORDERED: MAG-55 MT (01:59)
[2025-03-22 02:25] VITALS: BP 137/83; PULSE 100; RESP 18; TEMP 37.1; O2SAT 98
== END 2025-03-22 02:30 | disposition home or self-care (01) ==
LOC: ER 20:38
DX: K21.9 Gastro-esophageal reflux disease without esophagitis (principal); K29.70 Gastritis, unspecified, without bleeding; F14.10 Cocaine abuse, uncomplicated; F15.10 Other stimulant abuse, uncomplicated; F10.10 Alcohol abuse, uncomplicated; Z79.1 Long term (current) use of non-steroidal anti-inflammatories (NSAID); Z87.891 Personal history of nicotine dependence; Z79.899 Other long term (current) drug therapy
CPT/HCPCS: 80076; 80305; 80048; 81003; 80320; 83880; 83690; 85025; 85610; 84484; 36415; 71045; 93005; 99285; 76705; Q0162; Z7610 ×2; G0480

== ENCOUNTER 2025-03-25 16:26 | Emergency (ER) | payer OTHER, MEDICAID ==
[~2025-03-25] VITALS: Ht 165.1 cm; Wt 41.0 kg
[~2025-03-25 16:26] MED LIST changes: +MAG-55 MT
[2025-03-25 16:28] VITALS: O2SAT 99
[2025-03-25 16:51] VITALS: BP 142/88; PULSE 96; RESP 14; TEMP 36.9; O2SAT 100
[2025-03-25 16:58] LABS: BASOPHILS % 1.2 % (0.0-2.0); EOSINOPHILS % 3.7 % (0.0-5.0); HEMATOCRIT. 42.7 % (42.0-52.0); HEMOGLOBIN. 14.2 g/dL (14.0-18.0); LYMPHOCYTES % 21.9 % (20.0-50.0); MEAN CORPUSCULAR HEMOGLOBIN 29.8 pg (28.0-32.0); MEAN CORPUSCULAR HGB CONC 33.3 g/dL (31.0-37.0); MEAN CORPUSCULAR VOLUME 89.3 fL (80.0-94.0); MEAN PLATELET VOLUME 8.3 fl (7.4-10.4); MONOCYTES % 7.6 % (2.0-8.0); NEUTROPHILS % 65.6 % (40.0-76.0); PLATELET 276 x1000/uL (130-400); RED BLOOD CELL COUNT 4.78 mill/uL (4.7-6.1); RED CELL DISTRIBUTION WIDTH 13.4 % (11.6-14.6); WHITE BLOOD COUNT 6.3 x1000/uL (4.5-11.0)
[2025-03-25 17:06] LABS: CARBON DIOXIDE 29 mEq/L (21-32); CHLORIDE 101 mEq/L (98-107); POTASSIUM 4.1 mEq/L (3.5-5.1); SODIUM 138 mEq/L (136-145)
[2025-03-25 17:11] LABS: CREATININE 0.7 mg/dL (0.6-1.3)
[2025-03-25 17:12] LABS: GLUCOSE 90 mg/dL (70-105); UREA NITROGEN BLOOD 10 mg/dL (9-23)
[2025-03-25 17:13] LABS: ALANINE AMINOTRANSFERASE 89 IU/L (10-49); ASPARTATE AMINOTRANSFERASE 82 IU/L (<34)
[2025-03-25 17:14] LABS: ALBUMIN 4.4 g/dL (3.2-4.8); BILIRUBIN DIRECT 0.1 mg/dL (<=3.0); BILIRUBIN TOTAL 0.4 mg/dL (0.1-1.0); PROTEIN TOTAL 7.9 g/dL (6.0-8.3)
[2025-03-25] MEDS: ONDANSETRON 4MG ODT PO ONE (17:57)
[2025-03-25] MEDS: FAMOTIDINE 20MG TABLET PO ONE (17:57)
[2025-03-25] MEDS: MAGNESIUM/ALUMINUM HYDROXIDE/SIMETHICONE 30ML UDC PO ONE (17:57)
== END 2025-03-25 18:47 | disposition home or self-care (01) ==
LOC: ER 16:26
DX: K29.70 Gastritis, unspecified, without bleeding (principal); F10.90 Alcohol use, unspecified, uncomplicated; F15.90 Other stimulant use, unspecified, uncomplicated; F14.90 Cocaine use, unspecified, uncomplicated; Z79.1 Long term (current) use of non-steroidal anti-inflammatories (NSAID); Y90.9 Presence of alcohol in blood, level not specified
CPT/HCPCS: 99284; 80076; 80048; 83690; 85025; 36415; Q0162

== ENCOUNTER 2025-05-08 14:55 | Emergency (ER) | payer OTHER ==
[~2025-05-08] VITALS: Ht 162.6 cm; Wt 70.0 kg
[~2025-05-08 14:55] MED LIST changes: +LIDO-53 TP; -LIDO700A15 TP
[2025-05-08 14:56] VITALS: BP 136/90; O2SAT 98
[2025-05-08 15:01] VITALS: PULSE 112; RESP 20; O2SAT 98
[2025-05-08] MEDS ORDERED: DICYCLOMINE 10 MG/5 ML ORAL SYR PO STA (15:06)
[2025-05-08 15:37] LABS: BASOPHILS % 1.2 % (0.0-2.0); EOSINOPHILS % 2.5 % (0.0-5.0); HEMATOCRIT. 45.1 % (42.0-52.0); HEMOGLOBIN. 15.4 g/dL (14.0-18.0); MEAN CORPUSCULAR HEMOGLOBIN 29.6 pg (28.0-32.0); MEAN CORPUSCULAR HGB CONC 34.2 g/dL (31.0-37.0); MEAN CORPUSCULAR VOLUME 86.6 fL (80.0-94.0); MEAN PLATELET VOLUME 8.5 fl (7.4-10.4); MONOCYTES % 10.7 % (2.0-8.0); NEUTROPHILS % 64.6 % (40.0-76.0); PLATELET 349 x1000/uL (130-400); RED BLOOD CELL COUNT 5.21 mill/uL (4.7-6.1); RED CELL DISTRIBUTION WIDTH 13.6 % (11.6-14.6); WHITE BLOOD COUNT 6.7 x1000/uL (4.5-11.0)
[2025-05-08 15:43] LABS: CHLORIDE 97 mEq/L (98-107); POTASSIUM 3.4 mEq/L (3.5-5.1); SODIUM 137 mEq/L (136-145)
[2025-05-08 15:45] LABS: CALCIUM 10.1 mg/dL (8.7-10.4); CARBON DIOXIDE 28 mEq/L (21-32)
[2025-05-08] MEDS: DICYCLOMINE HCL 10MG CAPSULE PO SCH (15:49)
[2025-05-08] MEDS: MAGNESIUM/ALUMINUM HYDROXIDE/SIMETHICONE 30ML UDC PO STA (15:49)
[2025-05-08] MEDS: ONDANSETRON 4MG ODT PO STA (15:49)
[2025-05-08 15:50] LABS: CREATININE 0.8 mg/dL (0.6-1.3); ETHANOL BLOOD 46 mg/dL (<10); GLUCOSE 91 mg/dL (70-105); UREA NITROGEN BLOOD 7 mg/dL (9-23)
[2025-05-08 15:51] LABS: ALANINE AMINOTRANSFERASE 62 IU/L (10-49); ASPARTATE AMINOTRANSFERASE 41 IU/L (<34)
[2025-05-08 15:52] LABS: ALBUMIN 4.9 g/dL (3.2-4.8); BILIRUBIN DIRECT 0.3 mg/dL (<=3.0); PROTEIN TOTAL 7.8 g/dL (6.0-8.3)
[2025-05-08] MEDS: FAMOTIDINE 20MG TABLET PO SCH (15:54)
== END 2025-05-08 17:05 | disposition home or self-care (01) ==
LOC: ER 14:55
DX: K29.70 Gastritis, unspecified, without bleeding (principal); R12 Heartburn; F10.90 Alcohol use, unspecified, uncomplicated; F19.90 Other psychoactive substance use, unspecified, uncomplicated; F14.90 Cocaine use, unspecified, uncomplicated; Z79.1 Long term (current) use of non-steroidal anti-inflammatories (NSAID); Z87.19 Personal history of other diseases of the digestive system; Y90.9 Presence of alcohol in blood, level not specified
CPT/HCPCS: 80076; 80048; 80320; 83690; 85025; 36415; 93005; 99284; Q0162; G0480

== ENCOUNTER 2025-11-09 17:55 | Emergency (ER) | payer OTHER ==
[~2025-11-09] VITALS: Ht 162.6 cm; Wt 72.0 kg
[~2025-11-09 17:55] MED LIST changes: +IBUP-1455 MT; -IBUP-2029 MT
[2025-11-09 18:09] VITALS: O2SAT 100
[2025-11-09 19:42] LABS: ETHANOL BLOOD 140 mg/dL (<10)
[2025-11-09 19:47] LABS: INR 1.0
[2025-11-09 21:01] LABS: BASOPHILS % 0.8 % (0.0-2.0); EOSINOPHILS % 0.5 % (0.0-5.0); HEMATOCRIT. 46.5 % (42.0-52.0); HEMOGLOBIN. 15.4 g/dL (14.0-18.0); LYMPHOCYTES % 12.7 % (20.0-50.0); MEAN PLATELET VOLUME 8.5 fl (7.4-10.4); MONOCYTES % 10.1 % (2.0-8.0); NEUTROPHILS % 75.9 % (40.0-76.0); PLATELET 373 x1000/uL (130-400); RED BLOOD CELL COUNT 5.28 mill/uL (4.7-6.1); RED CELL DISTRIBUTION WIDTH 14.1 % (11.6-14.6)
[2025-11-09] MEDS: SODIUM CHLORIDE 0.9% 1,000 ML IV ONE (21:01)
[2025-11-09] MEDS: FAMOTIDINE 20MG/2ML VIAL IV ONE (21:01)
[2025-11-09] MEDS: MAGNESIUM/ALUMINUM HYDROXIDE/SIMETHICONE 30ML UDC PO ONE (21:01)
[2025-11-09] MEDS: ONDANSETRON HCL 4MG/2ML INJ IV ONE (21:01)
[2025-11-09 21:21] LABS: CREATININE 0.8 mg/dL (0.6-1.3); UREA NITROGEN BLOOD < 5 mg/dL (9-23)
[2025-11-09 21:22] LABS: PROTEIN TOTAL 7.9 g/dL (6.0-8.3); TROPONIN I HIGH SENSITIVITY < 4 ng/L (3.0-53)
[2025-11-09 21:23] LABS: ASPARTATE AMINOTRANSFERASE 48 IU/L (<34); BILIRUBIN DIRECT 0.3 mg/dL (<=3.0); BILIRUBIN TOTAL 0.8 mg/dL (0.1-1.0)
[2025-11-09] MEDS ORDERED: FAMO20TA8 MT (22:16)
[2025-11-09] MEDS ORDERED: MAG-55 MT (22:16)
[2025-11-09] MEDS ORDERED: ONDA-239 PO (22:16)
[2025-11-09 22:25] VITALS: BP 117/69; PULSE 93; RESP 18; TEMP 37.5; O2SAT 100
== END 2025-11-09 22:33 | disposition home or self-care (01) ==
LOC: ER 17:55 → CMPBEDREQ 23:31
DX: F10.20 Alcohol dependence, uncomplicated (principal); K29.70 Gastritis, unspecified, without bleeding; R11.2 Nausea with vomiting, unspecified; R06.02 Shortness of breath; F15.90 Other stimulant use, unspecified, uncomplicated; F14.90 Cocaine use, unspecified, uncomplicated; Z79.899 Other long term (current) drug therapy; Z79.1 Long term (current) use of non-steroidal anti-inflammatories (NSAID); Y90.9 Presence of alcohol in blood, level not specified
CPT/HCPCS: 80076; 80048; 80320; 83880; 83690; 83735; 85025; 85610; 85730; 86850; 86900; 86901; 84484; 36415; 71045; 93005; 96361; 96374; 96375; 99285; J1308; J2405; J7030; G0480